=== PATIENT | male | born 1965 | race African-American/Black ===

== ENCOUNTER 2016-12-18 09:27 | Emergency (ER) | payer OTHER ==
[~2016-12-18] VITALS: Ht 177.8 cm; Wt 111.6 kg
--- NOTE | ~2016-12-18 | EKG ---
[address] [address] ELECTROCARDIOGRAM REPORT Name: GILA AMOS [facility] [id number] Admission: 12/18/16 Attend Phys: Discharge: 12/18/16 Date of : 67 Report #: [id number] THIS REPORT FOR: //name// [facility] ED Test Date: 2016-12-18 Test Time: 09:27:10 Pat Name: GILA AMOS Department: Room: Gender: Compliance Specialist: Karin SNYDER : 1965 Requested By: Abby Martinez Order Number: [id number] MD: Skip Ramírez Measurements Intervals [place] Rate: 113 P: -2 RI: 179 QRS: 20 QRSD: 87 T: 26 QT: 316 QTc: 434 Interpretive Statements Sinus tachycardia Probable left atrial enlargement ST elev, probable normal early repol pattern Compared to ECG 04/07/2012 10:55:57 Early repolarization no longer present Myocardial infarct finding no longer present ST (T wave) deviation still present Electronically Signed On 12-18-2016 12:59:17 CDT by Skip Ramírez [email or web address] <ELECTRONICALLY SIGNED> By: Skip Ramírez MD 12/18/16 1259 0927 Skip Ramírez MD /EPI
[~2016-12-18 09:27] MED LIST: AMBIEN 10 MG TA10 MG PO; APAP/CODEINE ELI5 M1 OR; ARAVA10 MG PO; BACTRIM DS TAB1 EACH PO; CELEBREX 200 M200 MG PO; DARVOCET-N 1001 EACH PO; EMBREL; FLOMAX PO; FLOMAX0.4 MG PO; FOLIC ACID1 MG PO; HUMIRA20 MG/0.4 SQ; HYSINGLA ER30 MG PO; IMITREX100 MG PO; LISINOPRIL-HCT1 EAC1 PO; LISINOPRIL10 MG PO; LORTAB 7.5-3251 EACH PO; LORTAB 7.5/5001 TA3 PO; MULTIVITAMINS PO; NORCO 5-325 TA1 EACH PO; PERCOCET 7.5-31 EACH PO; PREDNISONE 20 M20 MG PO; PREDNISONE 5 MG5 M1 PO; REMICADE 1100 MG/VIA; RITUXAN100 MG/10 IV; ROXICODONE5 M2 PO; TRAMADOL 50 MG50 MG PO; TREXALL10 MG PO; TREXALL5 MG PO; ZOFRAN ODT4 MG PO; ZPAK PO; [UNRECOGNIZED DRUG - OTHER] IV
[2016-12-18 09:50] LABS: HEMATOCRIT 32.4 % (42.0-52.0); HEMOGLOBIN 11.3 gm/dL (14.0-18.0); MCH 27.3 pg (26.0-34.0); MCHC 34.9 g/dL (28.0-37.0); MCV 78.1 fL (80.0-100.0); PLATELET COUNT 336 thou/uL (150-400); RBC 4.14 mil/uL (4.50-6.00); RDW 15.1 % (10.5-14.5)
[2016-12-18 10:00] LABS: MANUAL DIFF YES
[2016-12-18 10:05] LABS: ANION GAP 14 mmol/L (7-16); BUN 16 mg/dL (7-18); CHLORIDE 103 mmol/L (98-107); CO2 23 mmol/L (21-32); CREATININE 1.1 mg/dL (0.7-1.3); GLUCOSE 107 mg/dL (74-106); POTASSIUM 3.6 mmol/L (3.5-5.1); SODIUM 140 mmol/L (136-145)
[2016-12-18 10:14] LABS: NT-PRO BRAIN NAT PEPTIDE 446 pg/mL (<300); TROPONIN-I < 0.04 ng/mL (<0.04-0.07)
[2016-12-18 10:53] LABS: ABSOLUTE NEUTROPHILS 6.3 thou/uL (1.4-8.2); ANISOCYTOSIS SLIGHT; TOTAL CELL COUNT 100
== END 2016-12-18 12:05 | disposition home or self-care (01) ==
LOC: ER 09:27
PROVIDERS: Emergency Medicine
DX: R06.00 Dyspnea, unspecified (principal); R00.2 Palpitations; R00.0 Tachycardia, unspecified; F10.99 Alcohol use, unspecified with unspecified alcohol-induced disorder; Z88.2 Allergy status to sulfonamides; Z88.1 Allergy status to other antibiotic agents; Z88.0 Allergy status to penicillin

== ENCOUNTER → 2016-12-27 | Outpatient (CLI) | payer OTHER | LOC: CAT 08:10 | DX: R06.00 Dyspnea, unspecified (principal) ==

== ENCOUNTER 2017-03-26 11:45 | Emergency (ER) | payer OTHER ==
[~2017-03-26] VITALS: Ht 175.3 cm; Wt 99.8 kg
[2017-03-26 12:30] LABS: BASOPHILS 1.1 % (0.0-2.0)
[2017-03-26 12:32] LABS: ABSOLUTE NEUTROPHILS 9.1 thou/uL (1.4-8.2); HEMATOCRIT 38.2 % (42.0-52.0); LYMPHOCYTES 11.9 % (24.0-44.0); MCHC 34.1 g/dL (28.0-37.0); MCV 73.2 fL (80.0-100.0); MONOCYTES 3.1 % (1.0-8.0); PLATELET COUNT 374 thou/uL (150-400); POLYS 82.9 % (36.0-66.0); RBC 5.21 mil/uL (4.50-6.00)
[2017-03-26 12:37] LABS: MANUAL DIFF NO
[2017-03-26 12:45] LABS: CALCIUM 9.4 mg/dL (8.5-10.1); CREATININE 0.7 mg/dL (0.7-1.3); POTASSIUM 4.2 mmol/L (3.5-5.1)
[2017-03-26 12:51] LABS: DIRECT BILIRUBIN 0.1 mg/dL (<0.1-0.3); TOTAL BILIRUBIN 0.3 mg/dL (<0.1-1.0)
[2017-03-26 13:24] LABS: URINE BILIRUBIN NEGATIVE (Negative); URINE BLOOD NEGATIVE (Negative); URINE COLOR YELLOW; URINE GLUCOSE-RANDOM* NEGATIVE (Negative); URINE KETONES NEGATIVE (Negative); URINE NITRITE NEGATIVE (Negative); URINE PROTEIN (DIPSTICK) NEGATIVE (Negative); URINE UROBILINOGEN 0.2 E.U./dl (0.2-1.0)
== END 2017-03-26 14:00 | disposition home or self-care (01) ==
LOC: ER 11:45
PROVIDERS: Nurse Practitioner
DX: J06.9 Acute upper respiratory infection, unspecified (principal); M06.9 Rheumatoid arthritis, unspecified; F10.99 Alcohol use, unspecified with unspecified alcohol-induced disorder; Z86.14 Personal history of Methicillin resistant Staphylococcus aureus infection; Z88.2 Allergy status to sulfonamides; Z88.1 Allergy status to other antibiotic agents; Z88.0 Allergy status to penicillin

== ENCOUNTER → 2017-04-12 | Outpatient (CLI) | payer OTHER ==
[~2017-04-12] VITALS: Ht 180.3 cm; Wt 103.0 kg
[~2017-04-12] MED LIST changes: +HYDROCORT PO; +SYNTHROID75 MCG PO
--- NOTE | ~2017-04-12 | HPC ---
[facility] [place] [address] PAIN MANAGEMENT CONSULTATION Name: DANDREGILA L SR Room #: [facility] Chiu#: [id number] Admission: 04/12/17 Attend Phys: Haseeb Carey DO Discharge: Date of : 67 Report #: [id number] THIS REPORT FOR: //name// CC: Reed Carey DATE OF SERVICE: 04/13/2017 DATE OF SERVICE: 04/13/2017 SUBJECTIVE: The patient is a 51-year-old gentleman long treated for osteoarthritis, rheumatoid arthritis, primarily affecting hands, knees and hips, requiring high risk, complex medication management. Last seen in pain clinic 08/27/2016. Continued on tramadol 50 mg q.i.d., rare use of oxycodone. Last urine drug screen on 03/19/2016 was positive for dextromethorphan. He is taking p.r.n. medications fairly regularly. The patient did follow up with Dr. Ken Graham regarding more aggressive management of his rheumatologic disorder. Unfortunately, unable to start on biologics due to a new diagnosis of thyroid dysfunction. End of December, he started on levothyroxine. Currently using methotrexate and Solu-Cortef for disease modification. Also, he is on Rituxan. Using tramadol for pain. Remaining medication was reconciled. He takes lisinopril, hydrochlorothiazide for hypertension, tamsulosin for benign prostatic hypertrophy, zolpidem for insomnia p.r.n. Today, he rates his pain as 9/10, primarily his ankles and does have some significant swelling bilaterally. Notes pain is exacerbated with activity and weather. He is becoming a little depressed. With increasing pain, he is becoming more disabled. He is currently on short term disability. 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 He notes now he cannot stand long enough and he has difficulty with getting winded early. OBJECTIVE: PHYSICAL EXAMINATION: Shows 51-year-old gentleman, BMI is 31.7 kilograms per meter squared. He is hypertensive today, blood pressure 161/108, pulse 90, respirations 16. Alert and oriented to person, place and time, judged to be a reasonable historian. Again, does have some appreciable edema in his wrists, a little bit in the knees, fairly significant edema bilateral lower extremities, [facility] [address] [place] [address] PAIN MANAGEMENT CONSULTATION Name: GILA AMOS Room #: [facility]#: [id number] Admission: 04/12/17 Attend Phys: Haseeb Carey DO Discharge: Date of : 67 Report #: [id number] ankles primarily. We reviewed the fact that opiate medications are being used to provide analgesia adequate to support activities of daily living, not attempting to achieve a specific pain score on the 0-10 Visual Analog Scale. The current opiate medications are providing sufficient analgesia to allow the patient to participate in activities of daily living. The patient is not exhibiting any aberrant behavior suggestive of drug diversion. The patient is not having any adverse reactions to medications. The patient is not suffering from daytime somnolence or mental acuity changes. The patient is managing opiate-induced constipation with appropriate nvxp-mcn-lubokgl agents and dietary considerations. The patient was counseled on concern for caution with operating a motor vehicle while using opiate medications. A physical exam was performed and the patient's functional status was evaluated. All patients with back pain were advised against the bed rest greater than 4 days and were advised to return to normal activities. Pain score assessment was noted and the treatment plan was reviewed with the patient. All current medications, both prescribed and OTC were reviewed and reconciled on the electronic medical record. Tobacco screening was accomplished and smoking cessation was advised when indicated. BMI was noted and diet/exercise modification was recommended for all patients following outside normal parameters. I reviewed with the patient today their responsibilities to safeguard prescription medications, reviewed their responsibility to utilize medications only as prescribed by the physician. They are to seek and receive pain medications only from 1 physician group ( [facility]). They are to use 1 pharmacy and keep the clinic informed if they change pharmacies. Their responsibilities include making followup visits in a timely fashion and to avoid abrupt discontinuation of medication usage. Their responsibilities further include bringing their medications (bottles from the pharmacy with residual pills) to the visit for possible confirmation of pill counts and the patient understands it is their responsibility to submit to random drug screens to ensure both that the medications prescribed are present, and that no other controlled substances are present. All prescriptions provided today were generated electronically. ASSESSMENT AND PLAN: Osteoarthritis and rheumatoid arthritis affecting hands, knees, hips and now ankles, requiring high risk complex medication management. The patient was seen for a prolonged visit today, greater than 25 minutes was spent reviewing interval history. Ultimately, we elected to continue the patient on tramadol for breakthrough pain 50 mg up to 2 tablets 3 times a day. I have taken the liberty of writing for 180 tablets with 2 refills. Follow up p.r.n. [facility] [address] [place] [address] PAIN MANAGEMENT CONSULTATION Name: AMOSGILA L Room #: REG [facility] AntwonPrudencio#: [id number] Admission: 04/12/17 Attend Phys: Haseeb Carey DO Discharge: Date of : 67 Report #: [id number] Discharged in good stable condition. <ELECTRONICALLY SIGNED> By: Haseeb Carey DO 04/15/17 0742 1142 1337 Haseeb Carey DO /nt
[2017-04-12 13:23] VITALS: BP 161/108
== END | disposition home or self-care (01) ==
LOC: PAIN 07:14
DX: Z76.0 Encounter for issue of repeat prescription (principal); G89.29 Other chronic pain; M15.9 Polyosteoarthritis, unspecified; M06.09 Rheumatoid arthritis without rheumatoid factor, multiple sites; I10 Essential (primary) hypertension; N40.0 Benign prostatic hyperplasia without lower urinary tract symptoms; Z79.899 Other long term (current) drug therapy; Z79.891 Long term (current) use of opiate analgesic; Z88.0 Allergy status to penicillin; Z88.2 Allergy status to sulfonamides; Z88.1 Allergy status to other antibiotic agents; Z88.8 Allergy status to other drugs, medicaments and biological substances